=== PATIENT | female | born 1940 | race Caucasian/White ===

== ENCOUNTER 2017-02-09 11:16 | Emergency (ER) | payer MEDICARE ==
[2017-02-09 12:02] LABS: UDS - AMPHET NEGATIVE QUAL (NEGATIVE); UDS - BARB NEGATIVE QUAL (NEGATIVE); UDS - BENZO NEGATIVE QUAL (NEGATIVE); UDS - COCAINE NEGATIVE QUAL (NEGATIVE); UDS - METH NEGATIVE QUAL (NEGATIVE); UDS - OPIATE NEGATIVE QUAL (NEGATIVE); UDS - PCP NEGATIVE QUAL (NEGATIVE); UDS - THC NEGATIVE QUAL (NEGATIVE)
[2017-02-09 12:10] LABS: BASOPHILS 0.5 % (0.0-2.0); EOSINOPHILS 0.8 % (0-7); HEMATOCRIT 44.6 % (36.0-48.0); HEMOGLOBIN 14.7 g/dL (12-16); IMMATURE GRANULOCYTES 0.2 % (0-5); LYMPHOCYTES 19.4 % (15-50); MCH 28.9 pg (26.0-34.0); MCV 87.6 fL (80.0-100.0); MEAN PLATELET VOLUME 11.4 fL (7.4-10.4); MONOCYTES 8.7 % (2-11); NEUTROPHILS 70.4 % (40-80); PLATELET COUNT 181 10x3/uL (130-400); RBC 5.09 10x6/uL (4.00-5.40); RDW 13.9 % (11.5-14.5); WBC 6.2 10x3/uL (4.8-10.8)
[2017-02-09 12:18] LABS: APPEARANCE CLOUDY (CLEAR); BILIRUBIN NEGATIVE (NEGATIVE); COLOR YELLOW (YELLOW); GLUCOSE NEGATIVE (NEGATIVE); KETONE SMALL mg/dL (NEGATIVE); LEUKOCYTE ESTERASE 2+ (NEGATIVE); NITRITE POSITIVE (NEGATIVE); PROTEIN 1+ mg/dL (NEGATIVE); SPECIFIC GRAVITY 1.005 (1.005-1.020); UROBILINOGEN NORMAL (NORMAL)
[2017-02-09 12:18] LABS: APTT 27.9 SECONDS (22.8-39.4); INR 1.1 (0.85-1.17); PROTIME 14.1 SECONDS (11.6-15.0)
[2017-02-09 12:22] LABS: BACTERIA MANY /hpf (NONE SEEN); EPITHELIAL CELLS OCC /hpf (0-5); RED CELLS - URINE RARE /hpf (0-5)
[2017-02-09 12:23] LABS: ALBUMIN 3.7 g/dL (3.4-5.0); ALKALINE PHOSPHATASE 99 U/L (46-116); ALT (SGPT) 28 U/L (10-68); CALC OSMOLALITY 283 mosm/kg (275-300); CALCIUM 9.4 mg/dL (8.5-10.1); CARBON DIOXIDE 31.8 mmol/L (21.0-32.0); CHLORIDE - SERUM 103 mmol/L (98-107); CREATININE - SERUM 0.8 mg/dL (0.6-1.3); GLUCOSE 108 mg/dL (74-106); POTASSIUM - SERUM 3.7 mmol/L (3.5-5.1); PROTEIN - SERUM 7.5 g/dL (6.4-8.2); SODIUM 142 mmol/L (136-145); UREA NITROGEN 13 mg/dL (7-18); eGFR NON AFRICAN AMERICAN 74 mL/min (90-120)
[2017-02-09 12:45] LABS: CREATINE KINASE 254 UL (21-215); TROPONIN-I 0.038 ng/mL (0.000-0.060)
[2017-02-09 12:54] LABS: CKMB 4.3 U/L (0.0-3.6)
== END 2017-02-09 22:00 | disposition home or self-care (01) ==
LOC: D.ER 11:16
PROVIDERS: Emergency Medicine
DX: N39.0 Urinary tract infection, site not specified (principal); R00.0 Tachycardia, unspecified; I48.91 Unspecified atrial fibrillation